=== PATIENT | female | born 1980 | race African-American/Black ===

== ENCOUNTER 2022-04-08 09:23 | Emergency (ER) | payer SELFPAY ==
[2022-04-08] MEDS ORDERED: IBUPROFEN 400 MG TAB ONE (10:17)
--- NOTE | 2022-04-08 10:41 | ER ---
Nurse's Notes [facility] Name: Yokasta Galarza Age: 41 yrs Sex: Female : 1980 Arrival Date: 04/08/2022 Time: 09:26 Bed 7 Private MD: Diagnosis: Influenza due to identified novel influenza A virus;Fever, unspecified;Acute upper respiratory infection, unspecified Presentation: 04/08 09:41 Chief complaint: Patient states: Cough, fever, body aches, chills, sore throat, ll1 diarrhea, dizzy since . Son is also sick. Coronavirus screen: Vaccine status: Patient reports receiving the 2nd dose of the covid vaccine. Client denies travel out of the [place] in the last 14 days. chills, congestion, cough unrelated to allergies, diarrhea, fatigue, fever, headache, muscle pain, runny nose, shaking with chills, sore throat, Client presents with at least one sign or symptom that may indicate coronavirus-19. Standard/surgical mask placed on the client. Ebola Screen: Patient denies travel to an Ebola-affected area in the 21 days before illness onset. Initial Sepsis Screen: Does the patient meet any 2 criteria? No. Patient's initial sepsis screen is negative. Does the patient have a suspected source of infection? Yes: Productive cough/pneumonia. Risk Assessment: Do you want to hurt yourself or someone else? Patient reports no desire to harm self or others. Onset of symptoms was April 06, 2022. 09:41 Method Of Arrival: Ambulatory ll1 09:41 Acuity: ARIA 4 ll1 Triage Assessment: 09:43 General: Appears uncomfortable, ill, Behavior is cooperative, appropriate for age. ll1 Pain: Complains of pain in head Quality of pain is described as aching. EENT: Reports nasal congestion nasal discharge pain when swallowing. Neuro: No deficits noted. Cardiovascular: No deficits noted. Respiratory: Reports cough that is. GI: No deficits noted. Musculoskeletal: Reports body aches. Historical: - Allergies: 09:42 No Known Allergies; ll1 - PMHx: 09:42 None; ll1 - PSHx: 09:42 None; ll1 - Immunization history:: Client reports receiving the 2nd dose of the Covid vaccine. - Social history:: Smoking status: Patient denies any tobacco usage or history of. - Family history:: not pertinent. Screenin:05 Abuse screen: Denies threats or abuse. Denies injuries from another. Nutritional pino screening: No deficits noted. Tuberculosis screening: No symptoms or risk factors identified. Fall Risk None identified. Assessment: 10:05 General: Appears in no apparent distress. Behavior is calm, cooperative. Pain: pino Complains of pain in generlied bodyaches. Respiratory: Reports cough that is Airway is patent Breath sounds are clear. EENT: Throat is reddened. 11:14 Reassessment: Patient appears in no apparent distress at this time. Patient and/or vg1 family updated on plan of care and expected duration. Pain level reassessed. Patient is alert, oriented x 3, equal unlabored respirations, skin warm/dry/pink. Vital Signs: 09:41 BP 132 / 108; Pulse 88; Resp 18; Temp 102.1; Pulse Ox 97% on R/A; Weight 88.45 kg; ll1 Height 5 ft. 5 in. (165.10 cm); 11:14 Resp 16; Temp 100.9; Pulse Ox 99% on R/A; vg1 09:41 Body Mass Index 32.45 (88.45 kg, 165.10 cm) ll1 ED Course: 09:26 Patient arrived in ED. rg4 09:27 Gonzalo Randall MD is Attending Physician. ace 09:30 Arm band placed on Patient placed in an exam room, on a stretcher. ll1 09:42 Triage completed. ll1 10:05 Patient has correct armband on for positive identification. Bed in low position. pino 10:05 No provider procedures requiring assistance completed. pino 10:09 Daisha Buck, RN is Primary Nurse. pino 11:15 Patient did not have IV access during this emergency room visit. vg1 Administered Medications: 10:18 Drug: Motrin (ibuprofen) 800 mg Route: PO; pino 10:18 Follow up: Response: No adverse reaction pino 10:51 Drug: Zithromax (azithromycin) 500 mg Route: PO; vg1 10:56 Follow up: Response: No adverse reaction pino 10:51 Drug: Tamiflu (oseltamivir) 75 mg Route: PO; vg1 10:56 Follow up: Response: No adverse reaction pino 10:56 Drug: Robitussin Pediatric (dextromethorphan) Liquid 10 mg Route: PO; pino 10:56 Follow up: Response: No adverse reaction pino Medication: 10:05 VIS not applicable for this client. pino Outcome: 10:41 Discharge ordered by . ace 11:14 Discharged to home ambulatory, with family. vg1 11:14 Condition: good 11:14 Discharge instructions given to patient, Instructed on discharge instructions, follow up and referral plans. medication usage, Demonstrated understanding of instructions, follow-up care, medications, Prescriptions given X 3. 11:15 Patient left the ED. vg1 Signatures: Gonzalo Randall MD MD cha Garcia, Rubi rg4 Patricia Coates, RN RN vg1 Ryder Reed RN RN 1 Lisa-JoseprDaisha RN RN
--- NOTE | 2022-04-08 10:42 | EDPHYS ---
Physician Documentation [facility] Name: Yokasta Galarza Age: 41 yrs Sex: Female : 1980 Arrival Date: 04/08/2022 Time: 09:26 Bed 7 Private MD: KEVIN Physician Gonzalo Randall HPI: 04/08 10:33 This 41 yrs old Black Female presents to ER via Ambulatory with complaints of Cough, ace Fever, Dizziness, Body Aches, Chills. 10:33 The patient or guardian reports airway noise, cough, described as mild. Onset: The ace symptoms/episode began/occurred 3 day(s) ago. Severity of symptoms: At their worst the symptoms were mild, in the emergency department the symptoms are unchanged. Modifying factors: The symptoms are alleviated by cool environment, the symptoms are aggravated by damp environment, dust, exertion. Associated signs and symptoms: Pertinent positives: fever, rhinorrhea, sore throat. The patient has experienced similar episodes in the past, a few times. Historical: - Allergies: 09:42 No Known Allergies; ll1 - PMHx: 09:42 None; ll1 - PSHx: 09:42 None; ll1 - Immunization history:: Client reports receiving the 2nd dose of the Covid vaccine. - Social history:: Smoking status: Patient denies any tobacco usage or history of. - Family history:: not pertinent. ROS: 10:33 Constitutional: Negative for fever, chills, and weight loss, Eyes: Negative for injury, ace pain, redness, and discharge, ENT: Negative for injury, pain, and discharge, Neck: Negative for injury, pain, and swelling, Cardiovascular: Negative for chest pain, palpitations, and edema, Abdomen/GI: Negative for abdominal pain, nausea, vomiting, diarrhea, and constipation, Back: Negative for injury and pain, : Negative for injury, bleeding, discharge, and swelling, MS/Extremity: Negative for injury and deformity, Skin: Negative for injury, rash, and discoloration, Neuro: Negative for headache, weakness, numbness, tingling, and seizure, Psych: Negative for depression, anxiety, suicide ideation, homicidal ideation, and hallucinations, Allergy/Immunology: Negative for hives, rash, and allergies, Endocrine: Negative for neck swelling, polydipsia, polyuria, polyphagia, and marked weight changes, Hematologic/Lymphatic: Negative for swollen nodes, abnormal bleeding, and unusual bruising. 10:33 Respiratory: Positive for cough. Exam: 10:33 Constitutional: This is a well developed, well nourished patient who is awake, alert, ace and in no acute distress. Head/Face: Normocephalic, atraumatic. Eyes: Pupils equal round and reactive to light, extra-ocular motions intact. Lids and lashes normal. Conjunctiva and sclera are non-icteric and not injected. Cornea within normal limits. Periorbital areas with no swelling, redness, or edema. ENT: Nares patent. No nasal discharge, no septal abnormalities noted. Tympanic membranes are normal and external auditory canals are clear. Oropharynx with no redness, swelling, or masses, exudates, or evidence of obstruction, uvula midline. Mucous membranes moist. Neck: Trachea midline, no thyromegaly or masses palpated, and no cervical lymphadenopathy. Supple, full range of motion without nuchal rigidity, or vertebral point tenderness. No Meningismus. Chest/axilla: Normal chest wall appearance and motion. Nontender with no deformity. No lesions are appreciated. Cardiovascular: Regular rate and rhythm with a normal S1 and S2. No gallops, murmurs, or rubs. Normal PMI, no JVD. No pulse deficits. Abdomen/GI: Soft, non-tender, with normal bowel sounds. No distension or tympany. No guarding or rebound. No evidence of tenderness throughout. Back: No spinal tenderness. No costovertebral tenderness. Full range of motion. Skin: Warm, dry with normal turgor. Normal color with no rashes, no lesions, and no evidence of cellulitis. MS/ Extremity: Pulses equal, no cyanosis. Neurovascular intact. Full, normal range of motion. Neuro: Awake and alert, GCS 15, oriented to person, place, time, and situation. Cranial nerves II-XII grossly intact. Motor strength 5/5 in all extremities. Sensory grossly intact. Cerebellar exam normal. Normal gait. 10:33 Respiratory: mild respiratory distress is noted, Respirations: no acute changes, Breath sounds: bronchial sounds, that are mild, rhonchi, that are mild, stridor, is not appreciated. Vital Signs: 09:41 BP 132 / 108; Pulse 88; Resp 18; Temp 102.1; Pulse Ox 97% on R/A; Weight 88.45 kg; ll1 Height 5 ft. 5 in. (165.10 cm); 11:14 Resp 16; Temp 100.9; Pulse Ox 99% on R/A; vg1 09:41 Body Mass Index 32.45 (88.45 kg, 165.10 cm) ll1 MDM: 09:27 Patient medically screened. [facility] 10:33 Data reviewed: vital signs, nurses notes, lab test result(s), Flu: positive. Data ace interpreted: compliance monitor: not applicable for this patient encounter. rate is 88 beats/min, Pulse oximetry: on room air is 97 %. Counseling: I had a detailed discussion with the patient and/or guardian regarding: the historical points, exam findings, and any diagnostic results supporting the discharge/admit diagnosis, lab results, radiology results, the need for outpatient follow up, for definitive care, a family practitioner. 04/08 09:28 Order name: SARS-COV-2 RT PCR (Document "Date of Onset" if Symptomatic) [facility] 04/08 09:28 Order name: Flu; Complete Time: 10:32 [facility] 04/08 09:39 Order name: Strep; Complete Time: 10:32 mb7 04/08 10:30 Order name: Throat Culture EDMS Administered Medications: 10:18 Drug: Motrin (ibuprofen) 800 mg Route: PO; pino 10:18 Follow up: Response: No adverse reaction pino 10:51 Drug: Zithromax (azithromycin) 500 mg Route: PO; vg1 10:56 Follow up: Response: No adverse reaction pino 10:51 Drug: Tamiflu (oseltamivir) 75 mg Route: PO; vg1 10:56 Follow up: Response: No adverse reaction pino 10:56 Drug: Robitussin Pediatric (dextromethorphan) Liquid 10 mg Route: PO; pino 10:56 Follow up: Response: No adverse reaction pino Disposition Summary: 04/08/22 10:41 Discharge Ordered Location: Home ace Problem: new ace Symptoms: have improved ace Condition: Stable ace Diagnosis - Influenza due to identified novel influenza A virus ace - Fever, unspecified ace - Acute upper respiratory infection, unspecified ace Followup: ace - With: Private Physician - When: 2 - 3 days - Reason: Recheck today's complaints, Continuance of care, Re-evaluation by your physician Discharge Instructions: - Discharge Summary Sheet [facility] - Fever, Adult ace - Influenza, Adult ace - Upper Respiratory Infection, Adult [facility] - Cool Mist Vaporizer ace - Upper Respiratory Infection, Adult, Odpy-ku-[id number] ace - Influenza, Adult, Xaxc-kk-Zetz ace - Cough, Adult, Qqjm-ga-[id number] ace - Fever, Adult, Vkkg-qx-Fgef [facility] Forms: - Medication Reconciliation Form [facility] - Thank You Letter [facility] - Antibiotic Education [facility] - Prescription Opioid Use [facility] Prescriptions: - Bromfed DM 2-30-10 mg/5 mL Oral syrup - take 10 milliliter by ORAL route every 6 hours; 180 milliliter; Refills: 0, [facility] Product Selection Permitted - Zithromax Z-Chay 250 mg Oral Tablet - take 1 tablet by ORAL route as directed for 5 days Day 1 - take two (2) tablets [facility] one time. Day 2, 3, 4 , 5 take one (1) tablet once daily.; 6 tablet; Refills: 0, Product Selection Permitted - Tamiflu 75 mg Oral Capsule - take 1 tablet by ORAL route every 12 hours for 5 days; 10 tablet; Refills: 0, [facility] Product Selection Permitted Signatures: Dispatcher [employer] Gonzalo Ceballos MD MD cha Garcia, Victoria RN RN vg1 Ryder Reed RN RN ll1 Daisha Buck RN RN pino
[2022-04-08] MEDS ORDERED: OSELTAMIVIR 75 MG CAP ONE (10:51)
[2022-04-08] MEDS ORDERED: AZITHROMYCIN 250 MG TAB ONE (10:52)
[2022-04-08] MEDS ORDERED: guaiFENesin 100 MG/5 ML UCUP ONE (10:58)
[2022-04-08 11:22] VITALS: BP 132/108
[2022-04-08 11:23] VITALS: TEMP 100.9; O2SAT 99
== END 2022-04-08 11:15 | disposition home or self-care (01) ==
LOC: ER 09:23
DX: J10.1 Influenza due to other identified influenza virus with other respiratory manifestations (principal); Z20.822 Contact with and (suspected) exposure to COVID-19
CPT/HCPCS: 87070; 87081; 87804; 99283; U0003

== ENCOUNTER 2023-09-20 09:55 | Emergency (ER) | payer SELFPAY ==
--- OUTSIDE RECORDS SUMMARY | 2023-09-20 09:58 | XMS REPORT | Continuity of Care Document ---
:1980 Author Organization [facility] t Address [address] [place] [address] Care Team Providers Name Role Phone Unavailable Unavailable Unavailable Problems This patient has no known problems. Allergies, Adverse Reactions, Alerts This patient has no known allergies or adverse reactions. Medications This patient has no known medications. Procedures This patient has no known procedures. Encounters Start End Encounter Admission Attending Care Care Encounter Source Date/Time Date/Time Type Type Clinicians Facility Department ID 2022-12-21 2022-12-21 Outpatient [facility] [id number] Mathew 09:43:48 09:43:48 0216 F Macy Results Test Description Test Time Test Comments Results Result Comments Source SARS-CoV-2 (COVID-19), RT-PCR/TMA 2021-11-13 16:30:16 Test Item Value Reference Range Interpretation Comme nts SARS-CoV-2 INTERPRETATION NEGATIVE SEE NOTE S ARS-CoV-2 RNA NOT (test code = 87193) DETECTED Negative results do not preclude SARS-C oV-2 infection and should notb e used as the sole basis for patient management deci sions. Negativeresults must be combined with c linical observations, p atient history,and epi demiological information. Op timum specimen types and timin gfor peak viral levels during i nfections caused by SARS-CoV-2 h ave notbeen determined. Col lection of multiple specim ens or types ofspecimens may be necessary to detect virus. I mproper specimencollect ion and handling, seque nce variability under primers/p robes,or organism presen t below the limit of detect ion may lead to falsenegative r esults. Positive and negative pr edictive values oftesting are h ighly dependent on prevalence. False negative testresults are more likely when prevalence is high. SOURCE (test code = 35243) NASOPHARYNGEAL Note: Methodology is Kassandra Siri Real-Time RT-PCR. The expected result or reference range is NEGATI VE (Not Detected). For more information regarding COVID -19 testing to include clinica linformation, methodology det ail, intended use, FDA author ization andrecommended fact sheets for patients or hea lthcare providers, see [facility] Announcement: S ARS-CoV-2 (COVID-19) by N AAT at URL below (note,fact shee ts are provided by method given in report:https:// www.[employer]/ clinicians/klever nt-communication s/ Alternativel y, see downloadable PD F fact sheet at:https://www. [employer]/COVI D-19-RT-PCR UNL ESS OTHERWISE INDICATED, ALL TESTING PERFORMED [facility], [facility]. [address] [place] [address] 4 PROCESS LEAD: Michael QUICK [id number] CAP ACCREDITATION N O. [id number]
[2023-09-20] MEDS ORDERED: ONDANSETRON 4 MG (ODT) TAB ONE (10:30)
[2023-09-20 10:45] LABS: SARS-CoV-2 Antigen Rapid Res Negative (Negative)
--- NOTE | 2023-09-20 11:00 | RAD REPORT ---
EXAM DESCRIPTION: RAD - Chest Single View - 09/20/2023 10:40 am CLINICAL HISTORY: COUGH COMPARISON: CHEST PA AND LAT 2 VIEW dated 08/21/2012 FINDINGS: Lines: None. Lungs: No evidence of edema or pneumonia. Pleural: No significant pleural effusions or pneumothorax. Cardiac: The heart size is within normal limits. Mediastinum: Within normal limits. Bones: No acute fractures. Other: None IMPRESSION: No acute cardiopulmonary disease.
--- NOTE | 2023-09-20 11:16 | ER ---
Nurse's Notes [facility] Name: Yokasta Galarza Age: 43 yrs Sex: Female : 1980 Arrival Date: 09/20/2023 Time: 09:55 Bed 18 Private MD: Diagnosis: Nausea with vomiting, unspecified;Viral syndrome Presentation: 09/20 10:04 Chief complaint: Patient states: Cough, congestion, KLEIN, fever, N/V/D since Sunday. ll1 Coronavirus screen: Vaccine status: Patient reports receiving the 2nd dose of the covid vaccine. Client denies travel out of the [place] in the last 14 days. chills, congestion, cough unrelated to allergies, diarrhea, difficulty breathing, fatigue, fever, headache, muscle pain, nausea, vomiting. Client presents with at least one sign or symptom that may indicate coronavirus-19. Standard/surgical mask placed on the client. Ebola Screen: Patient denies travel to an Ebola-affected area in the 21 days before illness onset. Initial Sepsis Screen: Does the patient meet any 2 criteria? No. Patient's initial sepsis screen is negative. Does the patient have a suspected source of infection? Yes: Productive cough/pneumonia. Risk Assessment: Do you want to hurt yourself or someone else? Patient reports no desire to harm self or others. Onset of symptoms was September 18, 2020. 10:04 Method Of Arrival: Ambulatory ll1 10:04 Acuity: ARIA 4 ll1 Triage Assessment: 10:05 General: Appears uncomfortable, Behavior is calm, cooperative, appropriate for age. ll1 Pain: Complains of pain in chest Pain currently is 7 out of 10 on a pain scale. Quality of pain is described as aching, sharp. EENT: Reports nasal congestion. Cardiovascular: Reports chest pain, fatigue, nausea, shortness of breath. Respiratory: Reports shortness of breath cough that is. GI: Reports diarrhea, nausea, vomiting. Historical: - Allergies: 09:59 No Known Drug Allergies; ll1 - PMHx: 10:04 None; ll1 - PSHx: 10:04 nasal SX; ll1 - Immunization history:: Adult Immunizations up to date. - Social history:: Smoking status: Patient denies any tobacco usage or history of. Screenin:00 [facility] ED Fall Risk Assessment (Adult) Score/Fall Risk Level 0 - 2 = Low Risk. Abuse eh3 screen: Denies threats or abuse. Denies injuries from another. Nutritional screening: No deficits noted. Tuberculosis screening: No symptoms or risk factors identified. Assessment: 10:00 General: Appears in no apparent distress. uncomfortable, Behavior is calm, cooperative, eh3 appropriate for age. Pain: Complains of pain in chest and abdomen. Neuro: Level of Consciousness is awake, alert, obeys commands, Oriented to person, place, time, situation. Cardiovascular: Capillary refill < 3 seconds Patient's skin is warm and dry. Respiratory: Airway is patent Respiratory effort is even, unlabored, Respiratory pattern is regular, symmetrical. Respiratory: Reports cough that is productive, pain with cough. GI: Abdomen is round non-distended, Reports nausea, vomiting. Derm: Skin is pink, warm \T\ dry. Musculoskeletal: Circulation, motion, and sensation intact. 11:00 Reassessment: Patient appears in no apparent distress at this time. Patient and/or 3 family updated on plan of care and expected duration. Pain level reassessed. Patient is alert, oriented x 3, equal unlabored respirations, skin warm/dry/pink. Patient states symptoms have improved. Vital Signs: 10:04 BP 125 / 80; Pulse 77; Resp 18; Temp 98.8; Pulse Ox 100% ; Weight 86.18 kg; Height 5 eh3 ft. 5 in. ; Pain 7/10; 11:00 BP 112 / 79; Pulse 79; Resp 16; Pulse Ox 100% on R/A; eh3 10:04 Body Mass Index 31.62 (86.18 kg, 165.1 cm) 3 10:04 Pain Scale: Adult [facility] ED Course: 09:58 Patient arrived in ED. im 09:59 Lola Turner FNP [facility] jh7 09:59 Juan Brown MD is Attending Physician. jh7 09:59 Arm band placed on Patient placed in an exam room, on a stretcher. ll1 10:00 Patient has correct armband on for positive identification. Call light in reach. Side 3 rails up X2. Provided Education on: use of call feliciano. Pulse ox on. NIBP on. 10:05 Triage completed. ll1 10:17 COVID swab sent to lab. Flu and/or RSV swab sent to lab. aa5 10:21 Delia Yu, RN is Primary Nurse. eh3 10:42 XRAY Chest (1 view) In Process Unspecified. EDMS 11:21 Diet: Patient given snack. Patient given juice. Tolerated well. eh3 11:22 No provider procedures requiring assistance completed. Patient did not have IV access eh3 during this emergency room visit. Administered Medications: 10:20 Drug: Ondansetron Oral Disintegrating Tablet Oral Disintegrating Tablet 4 mg PO once aa5 Route: PO; 10:50 Follow up: Response: No adverse reaction; Nausea is decreased eh3 Medication: 11:22 VIS not applicable for this client. eh3 Outcome: 11:15 Discharge ordered by . 7 11:36 Discharged to home ambulatory, with significant other, 3 11:36 Condition: stable 11:36 Discharge instructions given to patient, Instructed on discharge instructions, follow up and referral plans. medication usage, Demonstrated understanding of instructions, follow-up care, medications, Prescriptions given X 3, 11:36 Patient left the ED. 3 Signatures: Dispatcher [employer] EDMA Alina Thomas RN RN aa5 Ryder Reed RN RN ll1 Delia Yu, RN RN 3 Lola Turner FNP [employer] 7 Ana Agarwal Corrections: (The following items were deleted from the chart) 10:30 10:04 Pulse 77bpm; Resp 18bpm; Pulse Ox 100%; Temp 98.8F; 86.18 kg; Height 5 ft. 5 in.; eh3 BMI: 31.6; Pain 7/10, Adult; ll1
--- NOTE | 2023-09-20 11:16 | EDPHYS ---
Physician Documentation [facility] Name: Yokasta Galarza Age: 43 yrs Sex: Female : 1980 Arrival Date: 09/20/2023 Time: 09:55 Bed 18 Private MD: ED Physician Juan Brown HPI: 09/20 10:16 This 43 yrs old Black Female presents to ER via Ambulatory with complaints of Flu jh7 Symptoms, Nausea/Vomiting. 10:16 Onset: The symptoms/episode began/occurred 2 day(s) ago. Associated signs and symptoms: jh7 Pertinent positives: congestion, cough, diarrhea, vomiting, Pertinent negatives: abdominal pain, chest pain. Patient denies any past medical history or allergies.. Historical: - Allergies: 09:59 No Known Drug Allergies; ll1 - PMHx: 10:04 None; ll1 - PSHx: 10:04 nasal SX; ll1 - Immunization history:: Adult Immunizations up to date. - Social history:: Smoking status: Patient denies any tobacco usage or history of. ROS: 10:16 Constitutional: Negative for fever, chills, and weight loss, Eyes: Negative for injury, jh7 pain, redness, and discharge, Neck: Negative for injury, pain, and swelling, Cardiovascular: Negative for chest pain, palpitations, and edema, MS/Extremity: Negative for injury and deformity, Skin: Negative for injury, rash, and discoloration, Neuro: Negative for headache, weakness, numbness, tingling, and seizure, 10:16 ENT: Positive for sinus congestion, 10:16 Respiratory: Positive for cough, Negative for shortness of breath, 10:16 Abdomen/GI: Positive for nausea, vomiting, and diarrhea, Negative for abdominal pain, 10:16 All other systems are negative, Exam: 10:16 Constitutional: This is a well developed, well nourished patient who is awake, alert, jh7 and in no acute distress. Head/Face: Normocephalic, atraumatic. Eyes: Pupils equal round and reactive to light, extra-ocular motions intact. Lids and lashes normal. Conjunctiva and sclera are non-icteric and not injected. Cornea within normal limits. Periorbital areas with no swelling, redness, or edema. ENT: Nares patent. No nasal discharge, no septal abnormalities noted. Tympanic membranes are normal and external auditory canals are clear. Oropharynx with no redness, swelling, or masses, exudates, or evidence of obstruction, uvula midline. Mucous membranes moist. Cardiovascular: Regular rate and rhythm with a normal S1 and S2. No gallops, murmurs, or rubs. Normal PMI, no JVD. No pulse deficits. Respiratory: Lungs have equal breath sounds bilaterally, clear to auscultation and percussion. No rales, rhonchi or wheezes noted. No increased work of breathing, no retractions or nasal flaring. Abdomen/GI: Soft, non-tender, with normal bowel sounds. No distension or tympany. No guarding or rebound. No evidence of tenderness throughout. Skin: Warm, dry with normal turgor. Normal color with no rashes, no lesions, and no evidence of cellulitis. MS/ Extremity: Pulses equal, no cyanosis. Neurovascular intact. Full, normal range of motion. Neuro: Awake and alert, GCS 15, oriented to person, place, time, and situation. Motor strength 5/5 in all extremities. Sensory grossly intact. Normal gait. Vital Signs: 10:04 BP 125 / 80; Pulse 77; Resp 18; Temp 98.8; Pulse Ox 100% ; Weight 86.18 kg; Height 5 eh3 ft. 5 in. ; Pain 7/10; 11:00 BP 112 / 79; Pulse 79; Resp 16; Pulse Ox 100% on R/A; eh3 10:04 Body Mass Index 31.62 (86.18 kg, 165.1 cm) [facility] 10:04 Pain Scale: Adult [facility] MDM: 09:59 Patient medically screened. [facility] 11:10 Differential diagnosis: viral Infection, bacterial infection, URI. Data reviewed: vital [facility] signs, nurses notes. I considered the following discharge prescriptions or medication management in the emergency department Medications were administered in the Emergency Department. See MAR. Counseling: I had a detailed discussion with the patient and/or guardian regarding the historical points, exam findings, and any diagnostic results supporting the discharge/admit diagnosis, to return to the emergency department if symptoms worsen or persist or if there are any questions or concerns that arise at home. Response to treatment: the patient's symptoms have markedly improved after treatment. Special discussion: Patient passed p.o. challenge but states that she still feels nauseated. Agreed to prescribe Phenergan for nausea as well as cough medicine. Informed her that her abdominal exam was normal, but if she experience any new concerning symptoms, she may return to the ER for further eval.. 09/20 10:04 Order name: SARS RAPID; Complete Time: 10:50 [facility] 09/20 10:04 Order name: Flu; Complete Time: 10:50 [facility] 09/20 10:04 Order name: XRAY Chest (1 view); Complete Time: 11:07 [facility] 09/20 10:51 Order name: PO challenge; Complete Time: 11:21 [facility] Administered Medications: 10:20 Drug: Ondansetron Oral Disintegrating Tablet Oral Disintegrating Tablet 4 mg PO once aa5 Route: PO; 10:50 Follow up: Response: No adverse reaction; Nausea is decreased 3 Disposition: 12:48 Co-signature as Attending Physician, Juan Brown MD I agree with the assessment and kdr plan of care. Disposition Summary: 09/20/23 11:15 Discharge Ordered Notes: Location: Home [facility] Problem: new [facility] Symptoms: have improved [facility] Condition: Stable [facility] Diagnosis - Nausea with vomiting, unspecified [facility] - Viral syndrome [facility] Followup: [facility] - With: Private Physician - When: 2 - 3 days - Reason: Recheck today's complaints Discharge Instructions: - Discharge Summary Sheet [facility] - Nausea and Vomiting, Adult [facility] - Viral Illness, Adult [facility] Forms: - Medication Reconciliation Form [facility] - Thank You Letter [facility] - Patient Portal Instructions [facility] - Leadership Thank You Letter [facility] Prescriptions: - Tessalon Perles 100 mg Oral Capsule - take 1 capsule ORAL route every 8 hours As needed; 15 capsule; Refills: 0, [facility] Product Selection Permitted - Levsin 0.125 mg Oral Tablet - take 1 tablet ORAL route every 8 hours; 30 tablet; Refills: 0, Product [facility] Selection Permitted - promethazine 25 mg Oral Tablet - take 1 tablet ORAL route every 6 hours As needed; 20 tablet; Refills: 0, [facility] Product Selection Permitted Signatures: Dispatcher [employer] EDJuan Martin MD MD [facility] Alina Thomas RN RN aa5 Ryder Reed RN RN 1 Lola Turner FNP [employer] 7 Yu, Delia RN eh3
[2023-09-20 11:41] VITALS: TEMP 98.8; O2SAT 100
[2023-09-20 11:42] VITALS: BP 112/79
== END 2023-09-20 11:36 | disposition home or self-care (01) ==
LOC: ER 09:55
DX: B34.9 Viral infection, unspecified (principal); Z11.52 Encounter for screening for COVID-19
CPT/HCPCS: 36415; 71045; 87804; 87811; 99284; Q0162